=== PATIENT | female | born 1950 | race Caucasian/White ===

== ENCOUNTER 2023-11-08 15:09 | Emergency (ER) | payer OTHER, SELFPAY ==
[2023-11-08 15:15] VITALS: BP 118/64
[2023-11-08 15:16] VITALS: BP 118/64
[2023-11-08 16:00] VITALS: BP 108/67
[2023-11-08 16:02] LABS: % Basophils 0.7 % (0-2); % Eosinophils 1.2 % (0-6); % Immature Granulocytes 0.2 % (0-0.5); % Lymphocytes 27.7 % (20.5-51.1); % Monocytes 4.5 % (1.7-9.3); % Neutrophils 65.7 % (42.2-75.2); Absolute Eosinophils 0.1 10^3/uL (0-0.7); Absolute Lymphocytes 1.6 10^3/uL (1.2-3.4); Absolute Monocytes 0.3 10^3/uL (0.1-0.6); Absolute Neutrophils 3.8 10^3/uL (1.4-6.5); Hematocrit 36.5 % (37.0-47.0); Hemoglobin 12.4 g/dL (12.0-16.0); Mean Corpuscular Hgb 32.1 pg (27.0-31.0); Mean Corpuscular Volume 94.6 fL (81.0-99.0); Mean Platelet Volume 9.9 fL (7.4-10.4); Nucleated Red Blood Cells % 0 %; Platelet Count 290 10^3/uL (130-400); Red Blood Cell Count 3.86 10^6/uL (4.20-5.40); Red Cell Dist. Width 12.4 % (11.5-14.5); White Blood Cell Count 5.7 10^3/uL (4.8-10.8)
[2023-11-08 16:03] LABS: ALT (SGPT) 18 U/L (0-35); AST (SGOT) 27 U/L (14-36); Albumin 3.8 g/dl (3.5-5.0); Alkaline Phosphatase 60 U/L (38-126); Blood Urea Nitrogen 16 mg/dl (7-17); Calcium 8.9 mg/dl (8.4-10.2); Carbon Dioxide 27 mmol/L (22-30); Chloride 100 mmol/L (98-107); Glucose 162 mg/dl (70-99); Potassium 3.9 mmol/L (3.5-5.1); Sodium 132 mmol/L (135-145); Total Bilirubin 0.5 mg/dl (0.2-1.3); Total Protein 6.4 g/dl (6.3-8.2); eGFR > 60.00
[2023-11-08 16:11] LABS: Troponin I < 0.012 ng/ml
--- NOTE | 2023-11-08 16:45 | ED.GENMED ---
History of Present Illness
General
Chief Complaint: Fainting Sensation
Source: patient
Exam Limitations: none
Time Seen by Provider: 11/08/23 16:29
Nursing documentation reviewed up to this point in time: agreed with
Travel History
Have you had any contact with someone who has COVID-19?: No
Do you have any symptoms of coronavirus? Fever > 100 degrees, chills, cough, shortness of breath, sore throat, loss of taste or smell, muscle aches, or headache?: No
History of Present Illness
History of Present Illness:
73-year-old female with past medical history of low blood pressure presenting to the emergency department when she was out to lunch and felt lightheaded prior to eating she claims that she ate less than usual today did not fully pass out but felt
very lightheaded EMS was called this happened 2 times over short period time and now is asymptomatic no palpitations chest pain nausea vomiting no recent illness no recent additional issues.
Past History
Past History
ED Past Medical History: None
ED Past Surgical History: Orthopedic
Social History
Tobacco: Non-smoker
Review of Systems
Review of Systems
Allergies reviewed?: Yes
All Other Systems: ROS reviewed and negative except as documented in HPI and ROS
Phy Exam
Physical Exam
Physical Exam:
GENERAL: Alert , in no apparent distress
EYE: pupils equal and reactive
NECK: Supple, no significant adenopathy.
ENT: o/p clr, mmm.
CARDIAC: Regular rate and rhythm .
LUNGS: Clear breath sounds bilaterally, no acute respiratory distress, no wheezes/rales/rhonchi
ABDOMEN: Soft, without focal tenderness, no r/g, no cvat
NEUROLOGICAL: Alert and oriented, no focal neuro deficits 5-5 upper and lower extremity strength normal finger-nose [id number] no pronator drift.
SKIN: Warm and dry, skin intact.
MUSCULOSKELETAL: No edema, well perfused.
PSYCH: Normal and appropriate interaction.
Course
Orders/Labs/Results
Orders:
Orders
11/08/23 15:15
Electrocardiogram (*1) Urgent
Reason for Study: Vertigo / Dizzy
EKG- Treatment ONCE
11/08/23 15:17
Complete Blood Count/With Diff Urgent
Comprehensive Metabolic Panel Urgent
Troponin I Urgent
Abnormal Lab Results
11/08/23
15:17
RBC 3.86 L 10^6/uL
(4.20-5.40)
Hct 36.5 L %
(37.0-47.0)
MCH 32.1 H pg
(27.0-31.0)
Sodium 132 L mmol/L
(135-145)
Glucose 162 H mg/dl
(70-99)
11/08/23 15:17
11/08/23 15:17
Vital Signs
Initial and Last Documented VS:
Initial Vital Signs
BP
118/64
11/08/23 15:15
Last Documented Vital Signs
Temp Pulse Resp BP Pulse Ox
97.4 F 62 15 108/67 97
11/08/23 15:16 11/08/23 16:30 11/08/23 16:30 11/08/23 16:00 11/08/23 16:30
MDM/Problems Addressed
MDM/Problems Addressed:
73-year-old female presenting to the emergency department today with concerns of feeling lightheaded and that she needed to pass out but never fully passing out while eating prior to arrival. Claims that she has been eating less throughout the day
today. Denies specific chest pain palpitations vomiting. Vital signs normal here patient no obvious distress patient asymptomatic no red flag symptoms no headache normal neurologic evaluation normal heart and lung exam labs show slightly low
sodium but no emergent findings troponin negative EKG normal. No life-threatening causes are apparent at this point. Patient advised for close outpatient follow-up return precautions given.
*Critical Care Note
Total Time (30-74mins, 75-104mins- exclusive of procedures): Not Applicable
ED Attending Note
-
Portions of this chart may have been created with voice recognition software.� Occasional wrong word or��sound alike� substitutions may have occurred due to the inherent limitations of voice recognition software.
Discharge Plan
Departure
Patient Disposition: Home (Routine Discharge)
Date of Disposition: 11/08/23
Time of Disposition: 16:46
Patient with high blood pressure during this ER visit?: No
Condition: Good
Covid-19: Not Applicable
Discharge Problem:
Syncope
Instructions: Syncope (Fainting) (DC)
Prescriptions:
No Action
cyanocobalamin (vitamin B-12) 1,000 MCG tablet
1,000 mcg PO Q48H
aspirin 81 MG tablet,delayed release (DR/EC)
324 mg PO ONCE
Patient Comments:
11/02/21-only took due to her symptoms
calcium carbonate [Oyster Shell Calcium 500] 500 MG tablet
500 mg PO DAILY
ascorbic acid (vitamin C) [Vitamin C] 500 MG tablet
500 mg PO DAILY
zinc 50 MG tablet
50 mg PO DAILY
magnesium 200 MG tablet
200 mg PO DAILY
cholecalciferol (vitamin D3) 1,000 UNITS tablet
1,000 units PO DAILY
Lactobac 2-Bifido 1-S. therm [High Potency Probiotic] 1 CAP capsule
1 cap PO DAILY
lutein 6 MG tablet
6 mg PO Q48H
multivitamin with folic acid [Tab-A-Dwayne] 1 TABLET tablet
1 tab PO DAILY
turmeric 400 MG capsule
400 mg PO DAILY
Referrals:
Raúl Muniz MD [Family Provider] -
Activity Restrictions/Additional Instructions:
You came to the emergency department today with concerns of a presyncopal episode. You had a reassuring evaluation here. Please follow close with the primary care doctor next 1 to 2 weeks for reassessment and repeated labs. He had a very slightly
low sodium level but not at a critically low point. Return to the emergency department for any worsening, new or concerning symptoms.
Interventions
Interventions:
*Risk Screen - Suicide Last Done: 11/08/23 15:13
*General Assessment Last Done: 11/08/23 15:13
*Neglect/Abuse Screening Last Done: 11/08/23 15:13
*ED COVID-19 Vaccine History Last Done: 11/08/23 15:13
ED- Cardiac Assessment Last Done: 11/08/23 15:17
ED- Neurological Assessment Last Done: 11/08/23 15:17
== END 2023-11-08 16:59 | disposition home or self-care (01) ==
LOC: EMR 15:09
PROVIDERS: EMERGENCY PHYSICIAN Emergency Medicine; FAMILY PHYSICIAN Family Medicine
DX: R55 Syncope and collapse (principal)
CPT/HCPCS: 99283; 80053; 84484; 85025; 93005

== ENCOUNTER → 2024-06-03 14:36 | Outpatient (REF) | payer OTHER, SELFPAY | LOC: PAVMRI 14:36 | PROVIDERS: ATTENDING PHYSICIAN Family Medicine | DX: R41.3 Other amnesia (principal) | CPT/HCPCS: 70551 ==